=== PATIENT | female | born 1990 | race Two or more races ===

== ENCOUNTER 2017-11-27 16:34 | Emergency (ER) | payer OTHER ==
[~2017-11-27] VITALS: Ht 157.5 cm; Wt 67.6 kg
== END 2017-11-27 21:14 | disposition home or self-care (01) ==
LOC: ER 16:34
DX: B34.9 Viral infection, unspecified (principal)

== ENCOUNTER → 2017-12-04 | Emergency (ER) | payer OTHER ==
[~2017-12-04] VITALS: Ht 157.5 cm; Wt 63.5 kg
== END | disposition home or self-care (01) ==
LOC: ER 16:25
DX: R21 Rash and other nonspecific skin eruption (principal); D69.6 Thrombocytopenia, unspecified; B34.9 Viral infection, unspecified

== ENCOUNTER 2018-09-03 17:12 | Inpatient (IN) | payer OTHER ==
[~2018-09-03] VITALS: Ht 157.5 cm; Wt 71.7 kg
== END 2018-09-06 20:02 | disposition home or self-care (01) | DRG 833 ==
LOC: OBS/DEL 17:12 → OB/GYN 09-04 09:35 → LDR 09-04 09:35 → OB/GYN 09-04 16:24
PROVIDERS: ADMIT Obstetrics & Gynecology
PROC: 4A1HXCZ Monitoring of Products of Conception, Cardiac Rate, External Approach (ICD-10-PCS; 2018-09-04)
PROC: 2W3KX1Z Immobilization of Left Finger using Splint (ICD-10-PCS; principal; 2018-09-06)
DX: O26.893 Other specified pregnancy related conditions, third trimester (principal); S62.617A Displaced fracture of proximal phalanx of left little finger, initial encounter for closed fracture; Z34.83 Encounter for supervision of other normal pregnancy, third trimester; Z04.3 Encounter for examination and observation following other accident; W18.09XA Striking against other object with subsequent fall, initial encounter; Y93.89 Activity, other specified; Y92.098 Other place in other non-institutional residence as the place of occurrence of the external cause; Y99.8 Other external cause status

== ENCOUNTER 2018-09-09 15:09 | Outpatient (CLI) | payer OTHER | END 2018-09-09 15:23 | disposition home or self-care (01) | LOC: RAD 501 15:09 | DX: S62.647A Nondisplaced fracture of proximal phalanx of left little finger, initial encounter for closed fracture (principal) ==

== ENCOUNTER 2018-09-22 13:52 | Outpatient (CLI) | payer OTHER | END 2018-09-22 14:01 | disposition home or self-care (01) | LOC: RAD 501 13:52 | DX: M79.645 Pain in left finger(s) (principal) ==

== ENCOUNTER 2018-09-27 04:07 | Inpatient (IN) | payer OTHER ==
[~2018-09-27] VITALS: Ht 157.5 cm; Wt 2.7 kg
[2018-09-27] MEDS ORDERED: PRENATAL 19 TA1 EAC1 PO (05:31)
[2018-09-30] MEDS ORDERED: IBUPROFEN400 MG PO (12:43)
== END 2018-09-30 14:52 | DRG 785 ==
LOC: LDR 04:07 → OB/GYN 21:57
PROVIDERS: ADMIT Obstetrics & Gynecology
PROC: 3E033VJ Introduction of Other Hormone into Peripheral Vein, Percutaneous Approach (ICD-10-PCS; 2018-09-27)
PROC: 4A1HXCZ Monitoring of Products of Conception, Cardiac Rate, External Approach (ICD-10-PCS; 2018-09-27)
PROC: 0UB70ZZ Excision of Bilateral Fallopian Tubes, Open Approach (ICD-10-PCS; 2018-09-27)
PROC: 4A033R1 Measurement of Arterial Saturation, Peripheral, Percutaneous Approach (ICD-10-PCS; 2018-09-27)
PROC: 10D00Z1 Extraction of Products of Conception, Low, Open Approach (ICD-10-PCS; principal; 2018-09-27 19:00)
DX: O61.0 Failed medical induction of labor (principal); O76 Abnormality in fetal heart rate and rhythm complicating labor and delivery; Z3A.39 39 weeks gestation of pregnancy; Z37.0 Single live birth; Z30.2 Encounter for sterilization; Z22.330 Carrier of Group B streptococcus